=== PATIENT | male | born 1945 | race Caucasian/White ===

== ENCOUNTER 2023-07-01 08:07 | Inpatient (IN) | payer MEDICARE, OTHER ==
[2023-07-01] VITALS (7 sets, daily range): BP systolic 94–116; BP diastolic 61–68; PULSE 78–83; RESP 16–18; TEMP 98.2; O2SAT 92
[~2023-07-01] VITALS: Ht 172.7 cm; Wt 80.9 kg
[2023-07-01] MEDS ORDERED: diltiazem 5mg/ml 5ml inj. IV ONE ×3 (08:35→09:20)
[2023-07-01] MEDS ORDERED: normal saline 1000ml 1,000 ML IV ONE (08:40)
[2023-07-01 08:41] LABS: BASOPHILS # (AUTO) 0.1 X10'3 (0-0.2); BASOPHILS % (AUTO) 0.7 % (0-1); EOSINOPHILS # (AUTO) 0.1 X10'3 (0-0.9); EOSINOPHILS % (AUTO) 0.3 % (0-6); HEMATOCRIT 46.1 % (42.0-52.0); HEMOGLOBIN 15.9 g/dl (14.0-17.9); LYMPHOCYTES % (AUTO) 10.1 % (21-51); MEAN CORPUSCULAR HEMOGLOBIN 29.4 PG (27.0-31.0); MEAN CORPUSCULAR HGB CONC 34.5 g/dL (33.0-36.5); MEAN CORPUSCULAR VOLUME 85.2 FL (78-98); MEAN PLATELET VOLUME 7.7 FL (7.4-10.4); MONOCYTES # (AUTO) 1.3 X10'3 (0-0.9); MONOCYTES % (AUTO) 6.3 % (2-12); NEUTROPHILS # (AUTO) 16.3 X10'3 (1.8-7.7); NEUTROPHILS % (AUTO) 82.6 % (42-75); PLATELET COUNT 203 X10'3 (140-440); RED BLOOD COUNT 5.42 X10'6 (4.70-6.10); RED CELL DISTRIBUTION WIDTH 15.1 % (11.5-14.5); WHITE BLOOD COUNT 19.8 X10'3 (4.5-11.0)
[2023-07-01] MEDS ORDERED: ondansetron/PF 4mg/2ml inj IV ONE (08:45)
[2023-07-01] MEDS ORDERED: morphine 4 MG/ML inj SYRINge IV ONE (08:45)
[2023-07-01] MEDS ORDERED: iohexol 350MG/ML 100ml bottle IV ONE (08:49)
[2023-07-01 08:58] LABS: ALANINE AMINOTRANSFERASE 29 U/L (12-78); ALBUMIN 3.1 G/DL (3.4-5.0); ALBUMIN/GLOBULIN RATIO 0.9 (1.1-1.5); ALKALINE PHOSPHATASE 65 IU/L (46-116); ANION GAP 12 (8-16); ASPARTATE AMINO TRANSFERASE 21 U/L (10-37); BILIRUBIN,TOTAL 1.3 MG/DL (0.1-1.0); BLOOD UREA NITROGEN 26 MG/DL (7-18); BUN/CREATININE RATIO 18.2 (10.0-20.0); CALCIUM 8.9 MG/DL (8.5-10.1); CHLORIDE 102 MMOL/L (99-107); CREATININE 1.43 MG/DL (0.60-1.10); GLUCOSE 143 MG/DL (70-104); POTASSIUM 3.1 MMOL/L (3.5-5.1); PRO BRAIN NATRIURETIC PEPTIDE 1005 PG/ML (0-450); SODIUM 139 MMOL/L (135-145); TOTAL CARBON DIOXIDE 24.7 MMOL/L (24-32); TOTAL PROTEIN 6.6 G/DL (6.4-8.2); eCRCL 43 ML/MIN; eGFR 48 ML/MIN
[2023-07-01 09:05] LABS: APTT 29 SECONDS (22-32); INR 1.1 INR; PROTHROMBIN TIME 11.9 SECONDS (9.0-12.0)
--- NOTE | 2023-07-01 09:05 | NUR ---
Pt to CT
[2023-07-01] MEDS ORDERED: potassium Cl 20 mEq SR tablet PO STA (10:15)
[2023-07-01] MEDS ORDERED: bisacodyl 10mg suppository rectal RC PRN (11:00)
[2023-07-01] MEDS ORDERED: magnesium hydroxide 30ml (MOM) UD suspension PO PRN (11:00)
[2023-07-01] MEDS ORDERED: HYDROmorphone inj. 0.5 MG/0.5 ML DISP.SYRIN IV PRN (11:00)
[2023-07-01] MEDS ORDERED: HYDROmorphone/PF 0.2 MG/ML SYRINGE IV PRN (11:00)
[2023-07-01] MEDS ORDERED: magnesium 2GM in 50ml NS 50 ML IV PRN (11:00)
[2023-07-01] MEDS ORDERED: acetaminophen 650mg rectal suppository RC PRN (11:00)
[2023-07-01] MEDS ORDERED: diltiazem-D5W 125mg/125ml 125 ML IV SCH (11:00)
[2023-07-01] MEDS ORDERED: HYDROcodone/acetaminophen 10/325mg tab PO PRN (11:00)
[2023-07-01] MEDS ORDERED: ondansetron/PF 4mg/2ml inj IV PRN (11:00)
[2023-07-01] MEDS ORDERED: magnesium 4gm in 100ml NS 100 ML IV PRN (11:00)
[2023-07-01] MEDS ORDERED: ondansetron 4mg rapidly disintigrating tab PO PRN (11:00)
[2023-07-01] MEDS ORDERED: potassium Cl 40MEQ/1/2NS 520ml 520 ML IV PRN (11:00)
[2023-07-01] MEDS: normal saline 1000ml 1,000 ML IV SCH (11:00)
[2023-07-01] MEDS ORDERED: HYDROcodone/acetaminophen 5mg/325mg tablet PO PRN (11:00)
[2023-07-01] MEDS ORDERED: potassium Cl 20 mEq SR tablet PO PRN (11:00)
[2023-07-01] MEDS ORDERED: magnesium Cl slow-release 64mg tablet PO PRN (11:00)
[2023-07-01] MEDS ORDERED: mag hydrox/Alum hydrox/simeth 30ml oral suspension PO PRN (11:00)
[2023-07-01] MEDS ORDERED: acetaminophen 325mg tablet PO PRN ×2 (11:00)
--- NOTE | 2023-07-01 11:06 | NUR ---
received report from Chica RENEE assuming care of pt . Monitor leads on and functioning at bedside Afib noted at present time HR 118.
[2023-07-01] MEDS ORDERED: diltiazem-NS 100mg/100ml 100 ML IV SCH (11:25)
--- NOTE | 2023-07-01 11:25 | NUR ---
[id number] Dr. Dodd paged bp 86/[address] Walker notified new orders received give #2L and report to hospitalist. Pt self cathing at present time. Pt denies sob/cp endorse 4/10 dull L flank pain. Morphine admim prior to assuming care of pt effective.
[2023-07-01 11:46] LABS: MAGNESIUM 1.9 MG/DL (1.5-2.4); PHOSPHORUS 3.2 MG/DL (2.3-4.5); PRO BRAIN NATRIURETIC PEPTIDE 883 PG/ML (0-450)
--- NOTE | 2023-07-01 11:54 | NUR ---
IVF INFUSING 87/63 138 AFIB ON MONITOR. REPORT GIVE TO YUAN RENEE ASSUMING CARE AT PRESENT TIME.
[2023-07-01] MEDS ORDERED: normal saline 1000ML IV soln IVB ONE (11:55)
[2023-07-01 12:09] LABS: BILIRUBIN,URINE NEGATIVE (Neg); CLARITY,URINE SLIGHTLY CLOUDY (Clear); COLOR,URINE YELLOW (Yellow); GLUCOSE, URINE NEGATIVE (Neg); KETONES,URINE NEGATIVE (Neg); LEUKOCYTE ESTERASE ,URINE SMALL (Neg); NITRITES, URINE NEGATIVE (Neg); OCCULT BLOOD,URINE SMALL (Neg); PH,URINE 7.5 (4.8-8.0); PROTEIN,URINE 30 mg/dl (Neg); UROBILINOGEN,URINE 0.2 E.U/dL (0.2-1.0)
[2023-07-01 12:20] LABS: WBC,URINE 30-50 /HPF (0-4)
[2023-07-01 12:20] LABS: CHOLESTEROL 154 MG/DL (0-200); LDL CHOLESTEROL 72 MG/DL (50-100); THYROID STIMULATING HORMONE 1.88 ulU/ml (0.34-4.50); TRIGLYCERIDES 224 MG/DL (20-135)
[2023-07-01 12:21] LABS: BACTERIA,URINE 4+ /HPF (Neg); RBC,URINE 0-2 /HPF (0-2)
[2023-07-01 12:22] LABS: AMORPHOUS PHOSPHATES 1+; MUCUS STRANDS NONE SEEN /LPF (Neg); SQUAMOUS EPITHELIAL CELL,UR FEW /LPF (FEW)
[2023-07-01 12:26] LABS: UA COLLECTION TYPE STRAIGHT CATH
[2023-07-01 12:29] LABS: CHOL/HDL RATIO 4.1 (0.00-4.99); HDL CHOLESTEROL 38 MG/DL (35-60)
[2023-07-01] MEDS ORDERED: AMLO10TA13 PO (12:55)
[2023-07-01] MEDS ORDERED: ATOR40TA72 PO (12:55)
[2023-07-01] MEDS ORDERED: IBUP-1986 PO (12:56)
--- NOTE | 2023-07-01 13:00 | NUR ---
paged hosp Ju regarding HR
--- NOTE | 2023-07-01 14:14 | NUR ---
hospitalist has not called. spoke with Aaron in the ER he is ok with the dilt not being started due to low blood pressure. 112/71 and HR 115
--- NOTE | 2023-07-01 16:23 | NUR ---
message Hospitalist for the third time regarding HR
[2023-07-01] MEDS: piperacillin/tazo 3.375gm/50ml 50 ML IV SCH (16:34)
--- NOTE | 2023-07-01 17:06 | NUR ---
spoke to he will order different medication for rate control that does not affect the BP
[2023-07-01] MEDS ORDERED: amiodarone 150mg/dext, iso-os 100 ML IV ONE (18:00)
[2023-07-01] MEDS: amiodarone/D5 360MG/200ML BAG 200 ML IV SCH (19:17)
[2023-07-01] MEDS ORDERED: piperacillin/tazo 4.5gm/100ml 100 ML IV SCH (20:00)
[2023-07-01] MEDS: docusate sod 100mg capsule PO SCH (20:00)
[2023-07-01] MEDS: K and/or MAG REPLACEMENT MC SCH (20:00)
[2023-07-01] MEDS ORDERED: temazepam 15mg capsule PO PRN (21:00)
[2023-07-02] VITALS (13 sets, daily range): BP systolic 95–164; BP diastolic 52–95; PULSE 76–96; RESP 13–19; TEMP 97.9–99; O2SAT 91–100
[2023-07-02] MEDS: amiodarone/D5 360MG/200ML BAG 200 ML IV SCH (00:59)
[2023-07-02] MEDS: potassium Cl 20 mEq SR tablet PO PRN ×2 (01:03→05:30)
[2023-07-02] MEDS: heparin, porcine 5000 units/ml vial SQ SCH ×3 (01:04→16:51)
[2023-07-02] MEDS: normal saline 1000ml 1,000 ML IV SCH ×3 (03:03→20:24)
--- NOTE | 2023-07-02 04:00 | NUR ---
Dr. Antoine notified that pt continues to be in sinus rhythm, on Amio 0.5mg, VSS at this time, no new orders.
[2023-07-02 06:23] LABS: BASOPHILS % (AUTO) 0.3 % (0-1); EOSINOPHILS # (AUTO) 0.1 X10'3 (0-0.9); EOSINOPHILS % (AUTO) 0.7 % (0-6); HEMATOCRIT 40.4 % (42.0-52.0); HEMOGLOBIN 13.5 g/dl (14.0-17.9); LYMPHOCYTES # (AUTO) 1.7 X10'3 (1.1-4.8); MEAN CORPUSCULAR HGB CONC 33.5 g/dL (33.0-36.5); MEAN CORPUSCULAR VOLUME 86.5 FL (78-98); MEAN PLATELET VOLUME 7.7 FL (7.4-10.4); MONOCYTES # (AUTO) 1.2 X10'3 (0-0.9); MONOCYTES % (AUTO) 8.5 % (2-12); NEUTROPHILS # (AUTO) 11.1 X10'3 (1.8-7.7); NEUTROPHILS % (AUTO) 78.5 % (42-75); PLATELET COUNT 168 X10'3 (140-440); RED BLOOD COUNT 4.67 X10'6 (4.70-6.10); RED CELL DISTRIBUTION WIDTH 15.2 % (11.5-14.5); WHITE BLOOD COUNT 14.1 X10'3 (4.5-11.0)
--- NOTE | 2023-07-02 06:26 | NUR ---
Patient in room U 3014. I have received report from Jose De Jesus and had the opportunity to ask questions and assume patient care. Addendum: 07/02/23 at 0626 by Jake Tolliver RN Amended: Links added.
[2023-07-02 06:57] LABS: ALANINE AMINOTRANSFERASE 26 U/L (12-78); ALBUMIN 2.7 G/DL (3.4-5.0); ALKALINE PHOSPHATASE 50 IU/L (46-116); ANION GAP 11 (8-16); ASPARTATE AMINO TRANSFERASE 21 U/L (10-37); BLOOD UREA NITROGEN 31 MG/DL (7-18); BUN/CREATININE RATIO 25.2 (10.0-20.0); CALCIUM 7.9 MG/DL (8.5-10.1); CHLORIDE 106 MMOL/L (99-107); CREATININE 1.23 MG/DL (0.60-1.10); GLUCOSE 100 MG/DL (70-104); MAGNESIUM 2.1 MG/DL (1.5-2.4); POTASSIUM 3.8 MMOL/L (3.5-5.1); SODIUM 142 MMOL/L (135-145); TOTAL CARBON DIOXIDE 25.5 MMOL/L (24-32); TOTAL PROTEIN 5.4 G/DL (6.4-8.2); eCRCL 49 ML/MIN; eGFR 57 ML/MIN
[2023-07-02] MEDS: docusate sod 100mg capsule PO SCH ×2 (07:44→20:07)
[2023-07-02] MEDS: piperacillin/tazo 3.375gm/50ml 50 ML IV SCH ×3 (07:44→16:51)
[2023-07-02] MEDS: amiodarone 200mg tablet PO SCH ×2 (08:00→20:08)
[2023-07-02] MEDS: K and/or MAG REPLACEMENT MC SCH ×2 (08:00→20:00)
--- NOTE | 2023-07-02 18:10 | NUR ---
Problems reprioritized. Patient report given, questions answered & plan of care reviewed with Jose De Jesus. Addendum: 07/02/23 at 1811 by Jake Tolliver RN Amended: Links added.
[2023-07-02] MEDS: atorvastatin 20mg tablet PO SCH (20:08)
[2023-07-03] VITALS (8 sets, daily range): BP systolic 102–134; BP diastolic 55–72; PULSE 59–87; RESP 12–18; TEMP 97.6–99.7; O2SAT 90–96
[2023-07-03] MEDS: heparin, porcine 5000 units/ml vial SQ SCH ×4 (00:53→23:46)
[2023-07-03] MEDS: piperacillin/tazo 3.375gm/50ml 50 ML IV SCH ×4 (00:54→23:49)
--- NOTE | 2023-07-03 06:12 | NUR ---
Patient in room [facility] 3014. I have received report from Jose De Jesus and had the opportunity to ask questions and assume patient care. Addendum: 07/03/23 at 0612 by Jake Tolliver RN Amended: Links added.
[2023-07-03] MEDS: normal saline 1000ml 1,000 ML IV SCH (06:50)
[2023-07-03 07:38] LABS: BASOPHILS # (AUTO) 0.1 X10'3 (0-0.2); BASOPHILS % (AUTO) 0.5 % (0-1); EOSINOPHILS # (AUTO) 0.1 X10'3 (0-0.9); EOSINOPHILS % (AUTO) 1.5 % (0-6); HEMATOCRIT 35.4 % (42.0-52.0); HEMOGLOBIN 12.1 g/dl (14.0-17.9); LYMPHOCYTES # (AUTO) 1.3 X10'3 (1.1-4.8); LYMPHOCYTES % (AUTO) 13.3 % (21-51); MEAN CORPUSCULAR HEMOGLOBIN 29.6 PG (27.0-31.0); MEAN CORPUSCULAR HGB CONC 34.2 g/dL (33.0-36.5); MEAN CORPUSCULAR VOLUME 86.5 FL (78-98); MEAN PLATELET VOLUME 8.1 FL (7.4-10.4); MONOCYTES % (AUTO) 10.3 % (2-12); NEUTROPHILS # (AUTO) 7.2 X10'3 (1.8-7.7); NEUTROPHILS % (AUTO) 74.4 % (42-75); PLATELET COUNT 168 X10'3 (140-440); RED CELL DISTRIBUTION WIDTH 15.3 % (11.5-14.5); WHITE BLOOD COUNT 9.6 X10'3 (4.5-11.0)
[2023-07-03 07:49] LABS: ALANINE AMINOTRANSFERASE 21 U/L (12-78); ALBUMIN 2.4 G/DL (3.4-5.0); ALBUMIN/GLOBULIN RATIO 0.8 (1.1-1.5); ALKALINE PHOSPHATASE 42 IU/L (46-116); ANION GAP 7 (8-16); ASPARTATE AMINO TRANSFERASE 18 U/L (10-37); BILIRUBIN,TOTAL 0.9 MG/DL (0.1-1.0); BLOOD UREA NITROGEN 30 MG/DL (7-18); BUN/CREATININE RATIO 25.9 (10.0-20.0); CHLORIDE 105 MMOL/L (99-107); CREATININE 1.16 MG/DL (0.60-1.10); GLUCOSE 96 MG/DL (70-104); MAGNESIUM 1.9 MG/DL (1.5-2.4); POTASSIUM 3.6 MMOL/L (3.5-5.1); SODIUM 140 MMOL/L (135-145); TOTAL CARBON DIOXIDE 27.7 MMOL/L (24-32); TOTAL PROTEIN 5.3 G/DL (6.4-8.2); eCRCL 52 ML/MIN; eGFR 61 ML/MIN
[2023-07-03] MEDS: K and/or MAG REPLACEMENT MC SCH ×2 (08:00→20:00)
[2023-07-03] MEDS: docusate sod 100mg capsule PO SCH ×2 (08:27→21:18)
[2023-07-03] MEDS: amLODIPine 5mg tablet PO SCH (08:28)
[2023-07-03] MEDS: amiodarone 200mg tablet PO SCH ×2 (08:28→21:18)
[2023-07-03 08:47] LABS: % FREE PSA 36.4 % (.); PROSTATE SPECIFIC AG, SERUM 4.4 ng/mL (0.0-4.0); PSA, FREE 1.6 ng/mL
[2023-07-03] MEDS ORDERED: furosemide 40mg/4ml inj IV ONE (11:20)
--- NOTE | 2023-07-03 18:26 | NUR ---
Problems reprioritized. Patient report given, questions answered & plan of care reviewed with Jose De Jesus. Addendum: 07/03/23 at 1826 by Jake Tolliver RN Amended: Links added.
[2023-07-03] MEDS: atorvastatin 20mg tablet PO SCH (21:18)
[2023-07-04] MEDS ORDERED: methylPREDNISolone sod succ 125mg/2ml vial IV ONE
[2023-07-04] MEDS: methylPREDNISolone sod succ/PF 40mg inj. IV SCH ×3 (01:43→14:16)
[2023-07-04 01:58] LABS: ALANINE AMINOTRANSFERASE 39 U/L (12-78); ALBUMIN 2.6 G/DL (3.4-5.0); ALBUMIN/GLOBULIN RATIO 0.8 (1.1-1.5); ALKALINE PHOSPHATASE 81 IU/L (46-116); ANION GAP 7 (8-16); ASPARTATE AMINO TRANSFERASE 27 U/L (10-37); BILIRUBIN,TOTAL 0.9 MG/DL (0.1-1.0); BLOOD UREA NITROGEN 21 MG/DL (7-18); BUN/CREATININE RATIO 21.6 (10.0-20.0); CALCIUM 8.1 MG/DL (8.5-10.1); CHLORIDE 103 MMOL/L (99-107); CREATININE 0.97 MG/DL (0.60-1.10); GLUCOSE 84 MG/DL (70-104); MAGNESIUM 1.9 MG/DL (1.5-2.4); POTASSIUM 3.1 MMOL/L (3.5-5.1); SODIUM 139 MMOL/L (135-145); TOTAL PROTEIN 5.7 G/DL (6.4-8.2); eCRCL 63 ML/MIN; eGFR 75 ML/MIN
[2023-07-04 02:00] VITALS: BP 147/76; PULSE 82; RESP 12; TEMP 98.2; O2SAT 93
[2023-07-04 02:59] LABS: BASOPHILS % (AUTO) 0.6 % (0-1); EOSINOPHILS # (AUTO) 0.2 X10'3 (0-0.9); EOSINOPHILS % (AUTO) 2.5 % (0-6); HEMOGLOBIN 12.3 g/dl (14.0-17.9); LYMPHOCYTES # (AUTO) 1.2 X10'3 (1.1-4.8); LYMPHOCYTES % (AUTO) 15.4 % (21-51); MEAN CORPUSCULAR HEMOGLOBIN 29.8 PG (27.0-31.0); MEAN CORPUSCULAR HGB CONC 35.1 g/dL (33.0-36.5); MEAN PLATELET VOLUME 7.8 FL (7.4-10.4); MONOCYTES # (AUTO) 0.8 X10'3 (0-0.9); MONOCYTES % (AUTO) 10.4 % (2-12); NEUTROPHILS # (AUTO) 5.7 X10'3 (1.8-7.7); NEUTROPHILS % (AUTO) 71.1 % (42-75); PLATELET COUNT 174 X10'3 (140-440); RED BLOOD COUNT 4.12 X10'6 (4.70-6.10); RED CELL DISTRIBUTION WIDTH 14.9 % (11.5-14.5); WHITE BLOOD COUNT 8.1 X10'3 (4.5-11.0)
[2023-07-04 07:00] VITALS: BP 151/81; PULSE 81; RESP 18; TEMP 98.2; O2SAT 96
[2023-07-04] MEDS: piperacillin/tazo 3.375gm/50ml 50 ML IV SCH (08:00)
[2023-07-04] MEDS ORDERED: furosemide 40mg/4ml inj IV SCH (08:00)
[2023-07-04 08:22] VITALS: PULSE 84
[2023-07-04] MEDS: amiodarone 200mg tablet PO SCH (08:22)
[2023-07-04] MEDS: heparin, porcine 5000 units/ml vial SQ SCH (08:22)
[2023-07-04] MEDS: docusate sod 100mg capsule PO SCH (08:22)
[2023-07-04] MEDS: amLODIPine 5mg tablet PO SCH (08:22)
[2023-07-04] MEDS: K and/or MAG REPLACEMENT MC SCH (08:34)
[2023-07-04] MEDS: potassium Cl 20 mEq SR tablet PO PRN (08:34)
--- NOTE | 2023-07-04 12:29 | NUR ---
O2 Sat at rest on room air: 94% below 89%: NO If O2 Sat did not drop below 89% on room air,ambulate patient on room air. O2 Sat while ambulating on room air: 96% No further documentation is necessary. If patient does not drop below 89% while ambulating, he/she does not qualify for home O2.
--- NOTE | 2023-07-04 13:10 | NUR ---
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 Pt PO ~44% avg first 6 heart healthy meals 0% lunch and dinner yesterday partially meeting estimated needs. Noted continued lumbar pain likely influencing PO trends. Smoothies TIDWM added to assist meeting estimated needs; dietary notified. Will also recommend Ensure Enlive WL to assist protein/kcal intake; MD notified. Addendum: 07/04/23 at [address] Amended: Links added.
[2023-07-04] MEDS ORDERED: APIX5TAB3 PO (14:14)
[2023-07-04] MEDS ORDERED: POTA-207 PO (14:14)
[2023-07-04] MEDS ORDERED: CLOT15CR73 TP (14:14)
[2023-07-04] MEDS ORDERED: CIPR-202 PO (14:14)
[2023-07-04] MEDS ORDERED: METR-159 PO ×2 (14:14)
[2023-07-04] MEDS ORDERED: FURO-150 PO (14:14)
[2023-07-04] MEDS ORDERED: PRED20TA PO (14:14)
[2023-07-04] MEDS ORDERED: LIDO700A32 TOP (14:14)
[2023-07-04] MEDS ORDERED: AMI200T PO (14:18)
[2023-07-04] MEDS ORDERED: FLO0.4C PO (16:01)
[2023-07-04] MEDS ORDERED: AMOX-117 PO (16:01)
[2023-07-05] MEDS ORDERED: lactose-reduced food (Ensure Enlive) - 237ml bottle PO SCH (12:30)
== END 2023-07-04 15:40 | disposition home or self-care (01) | DRG 871 ==
LOC: ER 08:08 → ED HOLD 11:02 → PCU 3S 21:08
PROVIDERS: ADMIT Family Medicine; ATTEND Family Medicine
PROC: B32T1ZZ Computerized Tomography (CT Scan) of Left Pulmonary Artery using Low Osmolar Contrast (ICD-10-PCS; principal; 2023-07-01)
PROC: B3201ZZ Computerized Tomography (CT Scan) of Thoracic Aorta using Low Osmolar Contrast (ICD-10-PCS; 2023-07-01)
PROC: B32S1ZZ Computerized Tomography (CT Scan) of Right Pulmonary Artery using Low Osmolar Contrast (ICD-10-PCS; 2023-07-01)
PROC: B4201ZZ Computerized Tomography (CT Scan) of Abdominal Aorta using Low Osmolar Contrast (ICD-10-PCS; 2023-07-01)
PROC: B4241ZZ Computerized Tomography (CT Scan) of Superior Mesenteric Artery using Low Osmolar Contrast (ICD-10-PCS; 2023-07-01)
PROC: B4281ZZ Computerized Tomography (CT Scan) of Bilateral Renal Arteries using Low Osmolar Contrast (ICD-10-PCS; 2023-07-01)
PROC: B42C1ZZ Computerized Tomography (CT Scan) of Pelvic Arteries using Low Osmolar Contrast (ICD-10-PCS; 2023-07-01)
PROC: B42H1ZZ Computerized Tomography (CT Scan) of Bilateral Lower Extremity Arteries using Low Osmolar Contrast (ICD-10-PCS; 2023-07-01)
PROC: B4211ZZ Computerized Tomography (CT Scan) of Celiac Artery using Low Osmolar Contrast (ICD-10-PCS; 2023-07-01)
PROC: CP1Z1ZZ Planar Nuclear Medicine Imaging of Musculoskeletal System, All using Technetium 99m (Tc-99m) (ICD-10-PCS; 2023-07-02)
DX: A41.9 Sepsis, unspecified organism (principal); N17.0 Acute kidney failure with tubular necrosis; K57.32 Diverticulitis of large intestine without perforation or abscess without bleeding; N13.8 Other obstructive and reflux uropathy; I25.10 Atherosclerotic heart disease of native coronary artery without angina pectoris; N18.9 Chronic kidney disease, unspecified; M54.50 Low back pain, unspecified; E78.5 Hyperlipidemia, unspecified; E87.6 Hypokalemia; M25.552 Pain in left hip; R00.0 Tachycardia, unspecified; F12.90 Cannabis use, unspecified, uncomplicated; B19.20 Unspecified viral hepatitis C without hepatic coma; R26.2 Difficulty in walking, not elsewhere classified; I12.9 Hypertensive chronic kidney disease with stage 1 through stage 4 chronic kidney disease, or unspecified chronic kidney disease; I48.91 Unspecified atrial fibrillation; K52.9 Noninfective gastroenteritis and colitis, unspecified; M48.00 Spinal stenosis, site unspecified; Z87.442 Personal history of urinary calculi; Z87.891 Personal history of nicotine dependence; Z79.899 Other long term (current) drug therapy
CPT/HCPCS: 36415; 71045; 71275; 72157; 72158; 74174; 78306; 80053; 80061; 81001; 83605; 83735; 83880; 84100; 84153; 84154; 84443; 84484; 85025; 85610; 85730; 86885; 86900; 86901; 87040; 87077; 87088; 87186; 93005; 93306; 97116; 97161; 97530; 99285; A4615; A6258; A9503; G0378; J0282; J1170; J1644; J1940; J2270; J2405; J2543; J2920; J2930; J3490; J7030; J7040; Q9967